=== PATIENT | male | born 1965 | race African-American/Black ===

== ENCOUNTER 2019-02-13 17:15 | Inpatient (IN) | payer OTHER ==
[~2019-02-13] VITALS: Ht 185.4 cm; Wt 137.4 kg
[~2019-02-13 17:15] MED LIST: AMLO10TA7 PO; ASPI-1182 PO; GLIP10 PO; LOSA25TA41 PO; METF1000 PO
[2019-02-13] MEDS ORDERED: METF-960 PO (17:20)
[2019-02-13] MEDS ORDERED: ATEN25TA PO (17:20)
[2019-02-13] MEDS ORDERED: ASPIRIN 81 MG CHEWABLE TABLET PO ONE (17:45)
[2019-02-13 17:51] LABS: BASOPHILS % (AUTO) 0.4 % (0.0-2.0); EOSINOPHILS % (AUTO) 2.8 % (1.0-6.0); HEMATOCRIT 39.8 % (41-53); LYMPHOCYTES # (AUTO) 1.1 K/uL (1.0-4.8); LYMPHOCYTES % (AUTO) 19.3 % (22.0-44.0); MEAN CORPUSCULAR HEMOGLOBIN 29.8 pg (26.0-34.0); MEAN CORPUSCULAR HGB CONC 32.6 G/dL (31.0-37.0); MEAN CORPUSCULAR VOLUME 91 fL (80-100); MONOCYTES # (AUTO) 0.4 K/uL (0.1-1.0); NEUTROPHILS # (AUTO) 3.9 K/uL (1.8-7.7); NEUTROPHILS % (AUTO) 70.5 % (40.0-70.0); PLATELET COUNT (AUTO) 210 K/uL (150-450); RED BLOOD CELL COUNT(AUTO) 4.36 MIL/uL (4.50-5.90); RED CELL DISTRIBUTION WIDTH 14.6 % (11.5-14.5)
[2019-02-13 18:02] LABS: CALCIUM, TOTAL 8.5 mg/dL (8.8-10.5); CREATININE 1.84 mg/dL (0.60-1.30); POTASSIUM 3.3 mmol/L (3.5-5.1)
[2019-02-13] MEDS ORDERED: ALBUTEROL SULFATE 2.5 MG/0.5 ML NEB SOLUTION NEB ONE (18:15)
[2019-02-13] MEDS ORDERED: IPRATROPIUM BROMIDE 0.5 MG/2.5 ML NEB SOLUTION NEB ONE (18:15)
[2019-02-13] MEDS ORDERED: FUROSEMIDE 40 MG/4 ML VIAL IVP ONE (18:15)
[2019-02-13 18:27] LABS: ALBUMIN 2.3 g/dL (3.4-5.0); BILIRUBIN,TOTAL 0.4 mg/dL (0.1-1.0); TOTAL PROTEIN, SERUM 6.1 g/dL (6.4-8.2)
[2019-02-13 19:04] LABS: APPEARANCE,URINE CLEAR (CLEAR); BILIRUBIN,URINE NEGATIVE (NEGATIVE); GLUCOSE, URINE (UA) 250 mg/dL (NEGATIVE); KETONES,URINE NEGATIVE (NEGATIVE); LEUKOCYTE ESTERASE ,URINE NEGATIVE (NEGATIVE); NITRATE,URINE NEGATIVE (NEGATIVE); OCCULT BLOOD,URINE TRACE (NEGATIVE); PH,URINE 6.5 (5.0-8.0); PROTEIN,URINE SEE CONFIRM (NEGATIVE)
[2019-02-13 19:28] LABS: SULFOSALICYLIC ACID,URINE 4+ (Negative)
[2019-02-13 19:29] LABS: BACTERIA,URINE None Seen /HPF (None Seen); FINE GRANULAR CASTS,URINE 0-2 /LPF (None Seen); RBC,URINE 0-2 /HPF (0-2); WBC,URINE 0-2 /HPF (0-5)
[2019-02-13] MEDS ORDERED: ACETAMINOPHEN 325 MG TABLET PO PRN (23:00)
[2019-02-13] MEDS ORDERED: ONDANSETRON HCL 4 MG/2 ML VIAL IVP PRN (23:00)
[2019-02-13] MEDS ORDERED: 0.9% SODIUM CHLORIDE 10 ML SYRINGE IVP PRN (23:00)
[2019-02-14] VITALS (7 sets, daily range): BP systolic 134–153; BP diastolic 89–104
[2019-02-14] MEDS ORDERED: POTASSIUM CHLORIDE 20 MEQ ER TABLET PO ONE (01:00)
[2019-02-14] MEDS: FUROSEMIDE 40 MG/4 ML VIAL IVP SCH ×3 (09:15→23:51)
[2019-02-14] MEDS ORDERED: AmLODIPine BESYLATE 10 MG TABLET PO ONE (20:45)
[2019-02-14] MEDS ORDERED: ALBUTEROL SULFATE 2.5 MG/0.5 ML NEB SOLUTION NEB PRN (20:45)
[2019-02-14] MEDS ORDERED: DEXTROSE 50%-WATER 25 GM/50 ML SYRINGE IVP PRN (20:45)
[2019-02-14] MEDS: INSULIN LISPRO 100 UNITS/ML SQ PRN (21:12)
[2019-02-14] MEDS ORDERED: 0.9% SODIUM CHLORIDE 5 ML NEB SOLUTION NEB ONE (21:14)
[2019-02-14 22:56] LABS: GLUCOMETER DEV NAME(LOC) 5S.1; GLUCOSE,POINT OF CARE 397 MG/DL (70-110)
[2019-02-15 04:19] VITALS: BP 149/79
[2019-02-15] MEDS: INSULIN LISPRO 100 UNITS/ML SQ PRN ×3 (06:18→20:21)
[2019-02-15 06:21] LABS: BASOPHILS % (AUTO) 0.6 % (0.0-2.0); EOSINOPHILS % (AUTO) 3.3 % (1.0-6.0); HEMATOCRIT 39.2 % (41-53); HEMOGLOBIN 13.1 g/dL (13.5-17.5); LYMPHOCYTES # (AUTO) 1.4 K/uL (1.0-4.8); LYMPHOCYTES % (AUTO) 28.2 % (22.0-44.0); MEAN CORPUSCULAR HEMOGLOBIN 30.5 pg (26.0-34.0); MEAN CORPUSCULAR HGB CONC 33.3 G/dL (31.0-37.0); MEAN CORPUSCULAR VOLUME 92 fL (80-100); MONOCYTES # (AUTO) 0.4 K/uL (0.1-1.0); MONOCYTES % (AUTO) 7.7 % (2.0-9.0); NEUTROPHILS % (AUTO) 60.2 % (40.0-70.0); PLATELET COUNT (AUTO) 206 K/uL (150-450); RED BLOOD CELL COUNT(AUTO) 4.29 MIL/uL (4.50-5.90); RED CELL DISTRIBUTION WIDTH 15.2 % (11.5-14.5)
[2019-02-15 06:36] LABS: CALCIUM, TOTAL 8.4 mg/dL (8.8-10.5); CREATININE 1.48 mg/dL (0.60-1.30); MAGNESIUM 1.3 mg/dL (1.80-2.40); POTASSIUM 3.1 mmol/L (3.5-5.1)
[2019-02-15 07:35] VITALS: BP 150/81
[2019-02-15] MEDS: FUROSEMIDE 40 MG/4 ML VIAL IVP SCH ×3 (08:08→23:15)
[2019-02-15] MEDS ORDERED: ACETAMINOPHEN 325 MG TABLET PO PRN (09:00)
[2019-02-15] MEDS ORDERED: MAGNESIUM SULFATE 4 GM/WATER 100 ML IV PRN (09:00)
[2019-02-15] MEDS ORDERED: MORPHINE SULFATE 2 MG/ML SYRINGE IVP PRN (09:00)
[2019-02-15] MEDS ORDERED: BISACODYL 10 MG RECTAL RECTAL SUPPOSITORY PR PRN (09:00)
[2019-02-15] MEDS ORDERED: ONDANSETRON HCL 4 MG/2 ML VIAL IVP PRN (09:00)
[2019-02-15] MEDS ORDERED: POTASSIUM CHL 10 MEQ/WATER 50 ML IV PRN (09:00)
[2019-02-15] MEDS ORDERED: MAGNESIUM HYDROXIDE SUSPENSION 30 ML UDCUP PO PRN (09:00)
[2019-02-15] MEDS ORDERED: DEXTRAN 70 0.1%/HYPROMELL 0.3% 0.9 ML OPHTHALMIC SOLUTION [PF] OU PRN (09:00)
[2019-02-15] MEDS ORDERED: ZOLPIDEM TARTRATE 5 MG TABLET PO PRN (09:00)
[2019-02-15] MEDS ORDERED: IPRATROPIUM BROMIDE 0.5 MG/2.5 ML NEB SOLUTION NEB PRN (09:00)
[2019-02-15] MEDS ORDERED: HYDROCODONE/ACETAMINOPHEN 5-325 MG TABLET PO PRN (09:00)
[2019-02-15] MEDS ORDERED: ALBUTEROL SULFATE 2.5 MG/0.5 ML NEB SOLUTION NEB PRN (09:00)
[2019-02-15] MEDS ORDERED: MAGNESIUM OXIDE 400 MG TABLET PO PRN (09:00)
[2019-02-15 09:09] LABS: ALBUMIN 2.2 g/dL (3.4-5.0)
[2019-02-15] MEDS: AmLODIPine BESYLATE 10 MG TABLET PO SCH (09:59)
[2019-02-15] MEDS: ATENOLOL 25 MG TABLET PO SCH (09:59)
[2019-02-15] MEDS: ASPIRIN 81 MG EC TABLET PO SCH (09:59)
[2019-02-15] MEDS: DOCUSATE SODIUM 100 MG CAPSULE PO SCH ×2 (09:59→20:15)
[2019-02-15] MEDS: LOSARTAN POTASSIUM 25 MG TABLET PO SCH (09:59)
[2019-02-15] MEDS ORDERED: SODIUM CHLORIDE 0.9% 250 ML IV ONE (10:47)
[2019-02-15] MEDS: MAGNESIUM SULFATE 2 GM/WATER 50 ML IV PRN (10:59)
[2019-02-15 11:05] VITALS: BP 136/91
[2019-02-15] MEDS: POTASSIUM CHLORIDE 20 MEQ ER TABLET PO PRN (13:01)
[2019-02-15 15:00] VITALS: BP 142/101
[2019-02-15] MEDS: HEPARIN SODIUM,PORCINE 5,000 UNITS/ML VIAL SQ SCH ×2 (17:22→23:15)
[2019-02-15] MEDS: GlipiZIDE 10 MG TABLET PO SCH (17:22)
[2019-02-15 19:56] LABS: GLUCOMETER DEV NAME(LOC) 5S.2A; GLUCOSE,POINT OF CARE 354 MG/DL (70-110)
[2019-02-15 20:35] VITALS: BP 146/83
[2019-02-16] VITALS (18 sets, daily range): BP systolic 125–178; BP diastolic 72–101
[2019-02-16] MEDS: INSULIN LISPRO 100 UNITS/ML SQ PRN ×4 (06:18→20:32)
[2019-02-16 06:21] LABS: GLUCOMETER DEV NAME(LOC) 5S.2A; GLUCOSE,POINT OF CARE 220 MG/DL (70-110)
[2019-02-16 06:21] LABS: GLUCOMETER DEV NAME(LOC) 5S.1; GLUCOSE,POINT OF CARE 292 MG/DL (70-110)
[2019-02-16] MEDS: GlipiZIDE 10 MG TABLET PO SCH ×2 (06:30→16:53)
[2019-02-16] MEDS: HEPARIN SODIUM,PORCINE 5,000 UNITS/ML VIAL SQ SCH ×3 (08:00→23:24)
[2019-02-16] MEDS: ASPIRIN 81 MG EC TABLET PO SCH (08:19)
[2019-02-16] MEDS ORDERED: SODIUM BICARBONATE 50 MEQ/50 ML VIAL ONE (08:25)
[2019-02-16] MEDS ORDERED: IOHEXOL 300 MG/ML 150 ML VIAL ONE (08:25)
[2019-02-16] MEDS ORDERED: LIDOCAINE/PF 1% 30 ML VIAL ONE (08:25)
[2019-02-16] MEDS ORDERED: HEPARIN SODIUM 1000 UNITS/NS 1,000 ML ONE (08:25)
[2019-02-16] MEDS: ATENOLOL 25 MG TABLET PO SCH (08:32)
[2019-02-16] MEDS ORDERED: FentaNYL CITRATE-PF 100 MCG/2 ML VIAL ONE (09:16)
[2019-02-16] MEDS ORDERED: MIDAZOLAM HCL 2 MG/2 ML VIAL ONE (09:17)
[2019-02-16] MEDS ORDERED: NITROGLYCERIN 50 MG/D5% WATER 250 ML ONE (09:20)
[2019-02-16] MEDS ORDERED: VERAPAMIL HCL 2.5 MG/ML 2 ML VIAL ONE (09:20)
[2019-02-16] MEDS ORDERED: SODIUM CHLORIDE 0.9% 500 ML IV ONE (09:31)
[2019-02-16] MEDS ORDERED: HEPARIN SODIUM 1000 UNITS/NS 1,000 ML IARTER ONE (09:31)
[2019-02-16] MEDS ORDERED: LIDOCAINE 1% 30 ML/SOD BICARB 8.4% 4 ML SQ ONE (09:45)
[2019-02-16] MEDS ORDERED: FentaNYL CITRATE-PF 100 MCG/2 ML VIAL IVP ONE (09:45)
[2019-02-16] MEDS ORDERED: VERAPAMIL HCL 2.5 MG/ML 2 ML VIAL IARTER ONE (09:45)
[2019-02-16] MEDS ORDERED: NITROGLYCERIN/D5W 50 MG/250 ML IV BOTTLE IARTER ONE (09:45)
[2019-02-16] MEDS ORDERED: MIDAZOLAM HCL 2 MG/2 ML VIAL IVP ONE (09:45)
[2019-02-16] MEDS ORDERED: IOHEXOL 300 MG/ML 150 ML VIAL IARTER ONE (09:45)
[2019-02-16] MEDS ORDERED: HEPARIN SODIUM,PORCINE 5,000 UNITS/ML VIAL IVP ONE (10:15)
[2019-02-16] MEDS ORDERED: MAGNESIUM SULFATE 2 GM/WATER 50 ML IV ONE (10:15)
[2019-02-16] MEDS: LOSARTAN POTASSIUM 25 MG TABLET PO SCH (10:27)
[2019-02-16] MEDS: FUROSEMIDE 40 MG/4 ML VIAL IVP SCH ×3 (10:27→23:24)
[2019-02-16] MEDS: DOCUSATE SODIUM 100 MG CAPSULE PO SCH ×2 (10:27→20:20)
[2019-02-16] MEDS: AmLODIPine BESYLATE 10 MG TABLET PO SCH (10:27)
[2019-02-16 10:37] LABS: CALCIUM, TOTAL 8.4 mg/dL (8.8-10.5); CREATININE 1.54 mg/dL (0.60-1.30); MAGNESIUM 1.5 mg/dL (1.80-2.40); POTASSIUM 3.5 mmol/L (3.5-5.1)
[2019-02-16 11:25] LABS: GLUCOMETER DEV NAME(LOC) 5N.1; GLUCOSE,POINT OF CARE 289 MG/DL (70-110)
[2019-02-16] MEDS: CARVEDILOL 6.25 MG TABLET PO SCH (20:21)
[2019-02-17 03:55] LABS: GLUCOMETER DEV NAME(LOC) 5S.1; GLUCOSE,POINT OF CARE 367 MG/DL (70-110)
[2019-02-17 03:55] LABS: GLUCOMETER DEV NAME(LOC) 5N.2; GLUCOSE,POINT OF CARE 208 MG/DL (70-110)
[2019-02-17 04:00] LABS: GLUCOMETER DEV NAME(LOC) 5N.1; GLUCOSE,POINT OF CARE 275 MG/DL (70-110)
[2019-02-17 04:42] VITALS: BP 145/92
[2019-02-17] MEDS: GlipiZIDE 10 MG TABLET PO SCH (06:10)
[2019-02-17] MEDS: INSULIN LISPRO 100 UNITS/ML SQ PRN ×2 (06:13→12:02)
[2019-02-17 07:00] LABS: CALCIUM, TOTAL 8.4 mg/dL (8.8-10.5); CREATININE 1.64 mg/dL (0.60-1.30); MAGNESIUM 1.4 mg/dL (1.80-2.40); POTASSIUM 3.3 mmol/L (3.5-5.1)
[2019-02-17 07:30] VITALS: BP 144/83
[2019-02-17] MEDS: ASPIRIN 81 MG EC TABLET PO SCH (08:32)
[2019-02-17] MEDS: DOCUSATE SODIUM 100 MG CAPSULE PO SCH (08:32)
[2019-02-17] MEDS: POTASSIUM CHLORIDE 20 MEQ ER TABLET PO PRN (08:32)
[2019-02-17] MEDS: LOSARTAN POTASSIUM 25 MG TABLET PO SCH (08:32)
[2019-02-17] MEDS: AmLODIPine BESYLATE 10 MG TABLET PO SCH (08:32)
[2019-02-17] MEDS: CARVEDILOL 6.25 MG TABLET PO SCH (08:32)
[2019-02-17] MEDS: HEPARIN SODIUM,PORCINE 5,000 UNITS/ML VIAL SQ SCH (08:33)
[2019-02-17] MEDS: FUROSEMIDE 40 MG/4 ML VIAL IVP SCH (08:33)
[2019-02-17] MEDS: MAGNESIUM SULFATE 2 GM/WATER 50 ML IV PRN (08:36)
[2019-02-17 11:05] VITALS: BP 117/93
[2019-02-17 11:15] LABS: GLUCOMETER DEV NAME(LOC) 5S.1; GLUCOSE,POINT OF CARE 274 MG/DL (70-110)
[2019-02-17] MEDS ORDERED: CARV6 PO (12:58)
[2019-02-17] MEDS ORDERED: FURO40 PO (12:59)
[2019-02-17 17:10] LABS: GLUCOMETER DEV NAME(LOC) 5S.1; GLUCOSE,POINT OF CARE 261 MG/DL (70-110)
[2019-02-17] MEDS ORDERED: FUROSEMIDE 40 MG TABLET PO SCH (21:00)
== END 2019-02-17 13:45 | disposition home or self-care (01) | DRG 192 ==
LOC: EMS 17:16 → 5S 23:17
PROVIDERS: ADMIT Hospitalist; ATTEND Hospitalist
PROC: 4A023N7 Measurement of Cardiac Sampling and Pressure, Left Heart, Percutaneous Approach (ICD-10-PCS; principal; 2019-02-16)
PROC: B2111ZZ Fluoroscopy of Multiple Coronary Arteries using Low Osmolar Contrast (ICD-10-PCS; 2019-02-16)
DX: I11.0 Hypertensive heart disease with heart failure (principal); I42.9 Cardiomyopathy, unspecified; E44.0 Moderate protein-calorie malnutrition; E66.01 Morbid (severe) obesity due to excess calories; E11.65 Type 2 diabetes mellitus with hyperglycemia; E83.42 Hypomagnesemia; I50.43 Acute on chronic combined systolic (congestive) and diastolic (congestive) heart failure; I34.0 Nonrheumatic mitral (valve) insufficiency; E87.6 Hypokalemia; J98.01 Acute bronchospasm; E78.5 Hyperlipidemia, unspecified; N28.9 Disorder of kidney and ureter, unspecified; G43.909 Migraine, unspecified, not intractable, without status migrainosus; D64.9 Anemia, unspecified; Z68.41 Body mass index [BMI] 40.0-44.9, adult; I25.2 Old myocardial infarction; Z82.49 Family history of ischemic heart disease and other diseases of the circulatory system; Z80.6 Family history of leukemia; Z91.19 Patient's noncompliance with other medical treatment and regimen; Z83.3 Family history of diabetes mellitus
CPT/HCPCS: 83735; 84132; 93005; 93306; 94640; G0378; J1644; J1940; J2250; J3010; J3475; J3490; J7050; Q9967

== ENCOUNTER 2019-04-02 00:58 | Emergency (ER) | payer OTHER ==
[~2019-04-02] VITALS: Ht 185.4 cm; Wt 131.8 kg
[~2019-04-02 00:58] MED LIST changes: -AMLO10TA7 PO; +CARV6 PO; +FURO40 PO; -METF1000 PO
[2019-04-02] MEDS ORDERED: METF-960 PO (01:17)
[2019-04-02 01:29] LABS: GLUCOSE,POINT OF CARE 268 MG/DL (70-110)
[2019-04-02 02:56] LABS: BASOPHILS % (AUTO) 0.8 % (0.0-2.0); EOSINOPHILS % (AUTO) 2.2 % (1.0-6.0); HEMATOCRIT 40.2 % (41-53); HEMOGLOBIN 13.3 g/dL (13.5-17.5); LYMPHOCYTES # (AUTO) 1.5 K/uL (1.0-4.8); LYMPHOCYTES % (AUTO) 23.7 % (22.0-44.0); MEAN CORPUSCULAR HGB CONC 33.2 G/dL (31.0-37.0); MEAN CORPUSCULAR VOLUME 91 fL (80-100); MONOCYTES # (AUTO) 0.6 K/uL (0.1-1.0); MONOCYTES % (AUTO) 9.1 % (2.0-9.0); NEUTROPHILS # (AUTO) 4.2 K/uL (1.8-7.7); NEUTROPHILS % (AUTO) 64.2 % (40.0-70.0); PLATELET COUNT (AUTO) 208 K/uL (150-450); RED BLOOD CELL COUNT(AUTO) 4.45 MIL/uL (4.50-5.90); RED CELL DISTRIBUTION WIDTH 14.5 % (11.5-14.5)
[2019-04-02 03:05] LABS: CALCIUM, TOTAL 8.6 mg/dL (8.8-10.5); CREATININE 1.92 mg/dL (0.60-1.30); POTASSIUM 3.7 mmol/L (3.5-5.1)
[2019-04-02 03:11] LABS: ALBUMIN 2.2 g/dL (3.4-5.0); BILIRUBIN,TOTAL 0.2 mg/dL (0.1-1.0); TOTAL PROTEIN, SERUM 6.7 g/dL (6.4-8.2)
[2019-04-02 08:30] VITALS: BP 159/101
[2019-04-02] MEDS ORDERED: FUROSEMIDE 20 MG TABLET PO ONE (08:45)
== END 2019-04-02 08:50 | disposition home or self-care (01) ==
LOC: EMS 01:01
DX: R60.0 Localized edema (principal); R06.02 Shortness of breath; I11.0 Hypertensive heart disease with heart failure; I50.9 Heart failure, unspecified; E11.9 Type 2 diabetes mellitus without complications; G43.909 Migraine, unspecified, not intractable, without status migrainosus; Z79.84 Long term (current) use of oral hypoglycemic drugs; Z79.82 Long term (current) use of aspirin
CPT/HCPCS: 93970

== ENCOUNTER 2019-07-20 13:54 | Inpatient (IN) | payer OTHER ==
[~2019-07-20] VITALS: Ht 185.4 cm; Wt 70.7 kg
[~2019-07-20 13:54] MED LIST changes: -ASPI-1182 PO; +ASPI-728 PO; +ATOR20TA65 PO; +AZIT250T9 PO; +BUME1TAB34 PO; +CARV12 PO; -CARV6 PO; +CEPH500 PO; +FAMO20 PO; -FURO40 PO; -LOSA25TA41 PO; +LOSA25TA71 PO; +METF-960 PO; +OSEL30CA PO; +SPIR25TA PO
[2019-07-20] MEDS ORDERED: LISI-660 PO (14:06)
[2019-07-20] MEDS ORDERED: ASPIRIN 325 MG TABLET PO ONE (15:30)
[2019-07-20] MEDS ORDERED: FUROSEMIDE 40 MG/4 ML VIAL IVP ONE (15:30)
[2019-07-20 15:33] LABS: BASOPHILS % (AUTO) 1.3 % (0.0-2.0); EOSINOPHILS % (AUTO) 1.9 % (1.0-6.0); HEMATOCRIT 39.9 % (41-53); HEMOGLOBIN 12.7 g/dL (13.5-17.5); LYMPHOCYTES # (AUTO) 1.3 K/uL (1.0-4.8); MEAN CORPUSCULAR HEMOGLOBIN 28.9 pg (26.0-34.0); MEAN CORPUSCULAR HGB CONC 31.8 G/dL (31.0-37.0); MEAN CORPUSCULAR VOLUME 91 fL (80-100); MONOCYTES # (AUTO) 0.4 K/uL (0.1-1.0); MONOCYTES % (AUTO) 9.3 % (2.0-9.0); NEUTROPHILS # (AUTO) 2.6 K/uL (1.8-7.7); NEUTROPHILS % (AUTO) 57.5 % (40.0-70.0); PLATELET COUNT (AUTO) 189 K/uL (150-450); RED BLOOD CELL COUNT(AUTO) 4.38 MIL/uL (4.50-5.90); RED CELL DISTRIBUTION WIDTH 18.3 % (11.5-14.5)
[2019-07-20 15:48] LABS: CALCIUM, TOTAL 9.1 mg/dL (8.8-10.5); CREATININE 2.62 mg/dL (0.60-1.30); POTASSIUM 4.6 mmol/L (3.5-5.1)
[2019-07-20 15:57] LABS: ALBUMIN 2.3 g/dL (3.4-5.0); BILIRUBIN,TOTAL 0.6 mg/dL (0.1-1.0); TOTAL PROTEIN, SERUM 6.5 g/dL (6.4-8.2)
[2019-07-20] MEDS ORDERED: ONDANSETRON HCL 4 MG/2 ML VIAL IVP PRN ×2 (17:30→21:45)
[2019-07-20] MEDS ORDERED: 0.9% SODIUM CHLORIDE 10 ML SYRINGE IVP PRN (17:30)
[2019-07-20] MEDS ORDERED: FUROSEMIDE 20 MG/2 ML VIAL IVP ONE (17:30)
[2019-07-20] MEDS ORDERED: ACETAMINOPHEN 325 MG TABLET PO PRN ×2 (17:30→21:45)
[2019-07-20] MEDS ORDERED: ZOLPIDEM TARTRATE 5 MG TABLET PO PRN (21:45)
[2019-07-20] MEDS ORDERED: HYDROCODONE/ACETAMINOPHEN 5-325 MG TABLET PO PRN (21:45)
[2019-07-20] MEDS ORDERED: MAGNESIUM HYDROXIDE SUSPENSION 30 ML UDCUP PO PRN (21:45)
[2019-07-20] MEDS ORDERED: MORPHINE SULFATE 2 MG/ML SYRINGE IVP PRN (21:45)
[2019-07-20] MEDS ORDERED: BISACODYL 10 MG RECTAL RECTAL SUPPOSITORY PR PRN (21:45)
[2019-07-20 22:07] VITALS: BP 131/87
[2019-07-21] VITALS (7 sets, daily range): BP systolic 106–148; BP diastolic 69–97
[2019-07-21] MEDS ORDERED: HEPARIN SODIUM,PORCINE 5,000 UNITS/ML VIAL SQ SCH
[2019-07-21] MEDS: BUMETANIDE 1 MG TABLET PO SCH ×3 (05:51→16:11)
[2019-07-21] MEDS: GlipiZIDE 10 MG TABLET PO SCH ×2 (05:51→17:30)
[2019-07-21 06:34] LABS: BASOPHILS % (AUTO) 0.9 % (0.0-2.0); EOSINOPHILS % (AUTO) 3.1 % (1.0-6.0); HEMATOCRIT 39.1 % (41-53); HEMOGLOBIN 12.7 g/dL (13.5-17.5); LYMPHOCYTES # (AUTO) 1.8 K/uL (1.0-4.8); LYMPHOCYTES % (AUTO) 40.3 % (22.0-44.0); MEAN CORPUSCULAR HEMOGLOBIN 29.2 pg (26.0-34.0); MEAN CORPUSCULAR HGB CONC 32.4 G/dL (31.0-37.0); MEAN CORPUSCULAR VOLUME 90 fL (80-100); MONOCYTES # (AUTO) 0.6 K/uL (0.1-1.0); MONOCYTES % (AUTO) 12.9 % (2.0-9.0); NEUTROPHILS # (AUTO) 1.9 K/uL (1.8-7.7); NEUTROPHILS % (AUTO) 42.8 % (40.0-70.0); PLATELET COUNT (AUTO) 179 K/uL (150-450); RED BLOOD CELL COUNT(AUTO) 4.35 MIL/uL (4.50-5.90); RED CELL DISTRIBUTION WIDTH 17.5 % (11.5-14.5)
[2019-07-21 06:50] LABS: CREATININE 2.73 mg/dL (0.60-1.30); POTASSIUM 4.1 mmol/L (3.5-5.1)
[2019-07-21] MEDS ORDERED: MetFORMIN HCL 500 MG TABLET PO SCH (08:00)
[2019-07-21] MEDS: PANTOPRAZOLE SODIUM 40 MG DR TABLET PO SCH (08:40)
[2019-07-21] MEDS: SPIRONOLACTONE 25 MG TABLET PO SCH (08:40)
[2019-07-21] MEDS: ASPIRIN 81 MG CHEWABLE TABLET PO SCH (08:41)
[2019-07-21] MEDS: CARVEDILOL 12.5 MG TABLET PO SCH ×2 (08:41→21:25)
[2019-07-21] MEDS: DOCUSATE SODIUM 100 MG CAPSULE PO SCH ×2 (08:41→21:25)
[2019-07-21] MEDS ORDERED: LISINOPRIL 5 MG TABLET PO SCH (09:00)
[2019-07-21] MEDS ORDERED: LOSARTAN POTASSIUM 25 MG TABLET PO SCH (09:00)
[2019-07-21] MEDS: HEPARIN SODIUM,PORCINE 5,000 UNITS/ML VIAL SQ SCH (16:10)
[2019-07-21] MEDS: BUMETANIDE 0.25 MG/ML 10 ML VIAL IV SCH (21:25)
[2019-07-21] MEDS: ATORVASTATIN CALCIUM 20 MG TABLET PO SCH (21:25)
[2019-07-22] MEDS: HEPARIN SODIUM,PORCINE 5,000 UNITS/ML VIAL SQ SCH ×3 (00:09→16:05)
[2019-07-22 04:18] VITALS: BP 103/56
[2019-07-22] MEDS: GlipiZIDE 10 MG TABLET PO SCH ×2 (06:37→18:04)
[2019-07-22 06:51] LABS: BASOPHILS % (AUTO) 1.3 % (0.0-2.0); EOSINOPHILS % (AUTO) 4.5 % (1.0-6.0); HEMATOCRIT 36.9 % (41-53); HEMOGLOBIN 11.9 g/dL (13.5-17.5); LYMPHOCYTES # (AUTO) 1.3 K/uL (1.0-4.8); LYMPHOCYTES % (AUTO) 30.5 % (22.0-44.0); MEAN CORPUSCULAR HEMOGLOBIN 29.4 pg (26.0-34.0); MEAN CORPUSCULAR HGB CONC 32.3 G/dL (31.0-37.0); MEAN CORPUSCULAR VOLUME 91 fL (80-100); MONOCYTES # (AUTO) 0.5 K/uL (0.1-1.0); MONOCYTES % (AUTO) 10.4 % (2.0-9.0); NEUTROPHILS # (AUTO) 2.3 K/uL (1.8-7.7); NEUTROPHILS % (AUTO) 53.3 % (40.0-70.0); PLATELET COUNT (AUTO) 174 K/uL (150-450); RED BLOOD CELL COUNT(AUTO) 4.05 MIL/uL (4.50-5.90); RED CELL DISTRIBUTION WIDTH 17.6 % (11.5-14.5)
[2019-07-22 07:07] LABS: CALCIUM, TOTAL 8.3 mg/dL (8.8-10.5); CREATININE 2.54 mg/dL (0.60-1.30); MAGNESIUM 1.5 mg/dL (1.80-2.40); PHOSPHORUS 4.3 mg/dL (2.5-4.9)
[2019-07-22 08:00] VITALS: BP 110/70
[2019-07-22] MEDS: PANTOPRAZOLE SODIUM 40 MG DR TABLET PO SCH (08:45)
[2019-07-22] MEDS: CARVEDILOL 12.5 MG TABLET PO SCH ×2 (08:45→20:18)
[2019-07-22] MEDS: DOCUSATE SODIUM 100 MG CAPSULE PO SCH ×2 (08:45→20:12)
[2019-07-22] MEDS: ASPIRIN 81 MG CHEWABLE TABLET PO SCH (08:45)
[2019-07-22] MEDS: SPIRONOLACTONE 25 MG TABLET PO SCH (08:45)
[2019-07-22] MEDS ORDERED: MAGNESIUM SULFATE 1 GM in DEXTROSE 5%-WATER 50 ML IV ONE (08:45)
[2019-07-22] MEDS ORDERED: SODIUM CHLORIDE 0.9% 250 ML IV ONE (09:50)
[2019-07-22] MEDS: BUMETANIDE 0.25 MG/ML 10 ML VIAL IV SCH ×2 (10:39→20:12)
[2019-07-22 11:29] VITALS: BP 103/71
[2019-07-22 14:49] LABS: GLUCOMETER DEV NAME(LOC) 5S.2A; GLUCOSE,POINT OF CARE 142 MG/DL (70-110)
[2019-07-22 15:13] VITALS: BP 119/85
[2019-07-22 19:42] VITALS: BP 127/82
[2019-07-22] MEDS: ATORVASTATIN CALCIUM 20 MG TABLET PO SCH (20:12)
[2019-07-22 23:38] VITALS: BP 142/93
[2019-07-23] MEDS: HEPARIN SODIUM,PORCINE 5,000 UNITS/ML VIAL SQ SCH ×4 (00:06→23:08)
[2019-07-23 00:39] LABS: APPEARANCE,URINE CLEAR (CLEAR); BILIRUBIN,URINE NEGATIVE (NEGATIVE); GLUCOSE, URINE (UA) NEGATIVE (NEGATIVE); KETONES,URINE NEGATIVE (NEGATIVE); LEUKOCYTE ESTERASE ,URINE NEGATIVE (NEGATIVE); NITRATE,URINE NEGATIVE (NEGATIVE); OCCULT BLOOD,URINE NEGATIVE (NEGATIVE); PROTEIN,URINE SEE CONFIRM (NEGATIVE)
[2019-07-23 00:42] LABS: CREATININE,URINE RANDOM 84.2 mg/dL (30.0-125.0); SODIUM,URINE RANDOM 61 mmol/l (20-110); UREA NITROGEN,URINE RANDOM 274 mg/dL (350-1000)
[2019-07-23 00:46] LABS: SULFOSALICYLIC ACID,URINE 2+ (Negative)
[2019-07-23 00:53] LABS: BACTERIA,URINE Few /HPF (None Seen); HYALINE CASTS, URINE 0-2 /LPF (None Seen); RBC,URINE 0-2 /HPF (0-2); SQUAMOUS EPITHELIAL CELL,UR Rare /LPF (None Seen); WBC,URINE 0-2 /HPF (0-5)
[2019-07-23 03:48] VITALS: BP 120/76
[2019-07-23] MEDS: GlipiZIDE 10 MG TABLET PO SCH ×2 (06:18→17:14)
[2019-07-23 06:33] LABS: BASOPHILS % (AUTO) 0.8 % (0.0-2.0); EOSINOPHILS % (AUTO) 3.9 % (1.0-6.0); HEMATOCRIT 38.4 % (41-53); HEMOGLOBIN 12.3 g/dL (13.5-17.5); LYMPHOCYTES # (AUTO) 1.6 K/uL (1.0-4.8); MEAN CORPUSCULAR HEMOGLOBIN 29.1 pg (26.0-34.0); MEAN CORPUSCULAR VOLUME 91 fL (80-100); MONOCYTES # (AUTO) 0.6 K/uL (0.1-1.0); NEUTROPHILS % (AUTO) 55.3 % (40.0-70.0); PLATELET COUNT (AUTO) 195 K/uL (150-450); RED BLOOD CELL COUNT(AUTO) 4.23 MIL/uL (4.50-5.90)
[2019-07-23 06:44] LABS: CALCIUM, TOTAL 8.5 mg/dL (8.8-10.5); CREATININE 2.4 mg/dL (0.60-1.30); MAGNESIUM 1.7 mg/dL (1.80-2.40); PHOSPHORUS 4.2 mg/dL (2.5-4.9); POTASSIUM 4.1 mmol/L (3.5-5.1)
[2019-07-23 07:07] VITALS: BP 136/93
[2019-07-23] MEDS: ASPIRIN 81 MG CHEWABLE TABLET PO SCH (08:09)
[2019-07-23] MEDS: SPIRONOLACTONE 25 MG TABLET PO SCH (08:09)
[2019-07-23] MEDS: CARVEDILOL 12.5 MG TABLET PO SCH ×2 (08:10→20:31)
[2019-07-23] MEDS: PANTOPRAZOLE SODIUM 40 MG DR TABLET PO SCH (08:10)
[2019-07-23] MEDS: DOCUSATE SODIUM 100 MG CAPSULE PO SCH ×2 (08:10→20:31)
[2019-07-23] MEDS ORDERED: MAGNESIUM SULFATE 1 GM in DEXTROSE 5%-WATER 50 ML IV ONE (10:30)
[2019-07-23 10:56] VITALS: BP 120/80
[2019-07-23] MEDS: BUMETANIDE 0.25 MG/ML 10 ML VIAL IV SCH ×2 (11:26→20:32)
[2019-07-23 16:04] VITALS: BP 136/81
[2019-07-23 20:22] VITALS: BP 145/94
[2019-07-23] MEDS: ATORVASTATIN CALCIUM 20 MG TABLET PO SCH (20:31)
[2019-07-24] VITALS (7 sets, daily range): BP systolic 112–144; BP diastolic 60–100
[2019-07-24] MEDS: GlipiZIDE 10 MG TABLET PO SCH ×2 (06:17→17:33)
[2019-07-24 07:46] LABS: EOSINOPHILS % (AUTO) 4.6 % (1.0-6.0); HEMATOCRIT 36.9 % (41-53); HEMOGLOBIN 11.9 g/dL (13.5-17.5); LYMPHOCYTES # (AUTO) 1.2 K/uL (1.0-4.8); LYMPHOCYTES % (AUTO) 27.4 % (22.0-44.0); MEAN CORPUSCULAR HEMOGLOBIN 29.1 pg (26.0-34.0); MEAN CORPUSCULAR HGB CONC 32.2 G/dL (31.0-37.0); MEAN CORPUSCULAR VOLUME 90 fL (80-100); MONOCYTES # (AUTO) 0.5 K/uL (0.1-1.0); MONOCYTES % (AUTO) 11.9 % (2.0-9.0); NEUTROPHILS # (AUTO) 2.4 K/uL (1.8-7.7); NEUTROPHILS % (AUTO) 55.1 % (40.0-70.0); PLATELET COUNT (AUTO) 203 K/uL (150-450); RED BLOOD CELL COUNT(AUTO) 4.09 MIL/uL (4.50-5.90); RED CELL DISTRIBUTION WIDTH 17.6 % (11.5-14.5)
[2019-07-24 08:01] LABS: CALCIUM, TOTAL 8.5 mg/dL (8.8-10.5); CREATININE 2.12 mg/dL (0.60-1.30); MAGNESIUM 1.7 mg/dL (1.80-2.40); PHOSPHORUS 3.6 mg/dL (2.5-4.9); POTASSIUM 4.1 mmol/L (3.5-5.1)
[2019-07-24] MEDS: SPIRONOLACTONE 25 MG TABLET PO SCH (08:20)
[2019-07-24] MEDS: HEPARIN SODIUM,PORCINE 5,000 UNITS/ML VIAL SQ SCH ×2 (08:20→17:33)
[2019-07-24] MEDS: DOCUSATE SODIUM 100 MG CAPSULE PO SCH ×2 (08:20→20:23)
[2019-07-24] MEDS: BUMETANIDE 0.25 MG/ML 10 ML VIAL IV SCH ×2 (08:20→20:24)
[2019-07-24] MEDS: PANTOPRAZOLE SODIUM 40 MG DR TABLET PO SCH (08:20)
[2019-07-24] MEDS: ASPIRIN 81 MG CHEWABLE TABLET PO SCH (08:20)
[2019-07-24] MEDS: CARVEDILOL 12.5 MG TABLET PO SCH ×2 (08:21→20:23)
[2019-07-24 11:51] LABS: GLUCOMETER DEV NAME(LOC) 5N.2; GLUCOSE,POINT OF CARE 139 MG/DL (70-110)
[2019-07-24] MEDS ORDERED: MAGNESIUM SULFATE 1 GM in DEXTROSE 5%-WATER 50 ML IV ONE (12:00)
[2019-07-24 18:04] LABS: GLUCOMETER DEV NAME(LOC) 5N.2; GLUCOSE,POINT OF CARE 157 MG/DL (70-110)
[2019-07-24] MEDS: ATORVASTATIN CALCIUM 20 MG TABLET PO SCH (20:23)
[2019-07-25] MEDS: HEPARIN SODIUM,PORCINE 5,000 UNITS/ML VIAL SQ SCH ×3 (00:28→15:59)
[2019-07-25 03:52] VITALS: BP 135/78
[2019-07-25] MEDS: GlipiZIDE 10 MG TABLET PO SCH ×2 (05:29→16:57)
[2019-07-25 05:31] LABS: GLUCOMETER DEV NAME(LOC) 5N.2; GLUCOSE,POINT OF CARE 147 MG/DL (70-110)
[2019-07-25 07:22] VITALS: BP 124/84
[2019-07-25 07:43] LABS: EOSINOPHILS % (AUTO) 5.9 % (1.0-6.0); HEMATOCRIT 38.8 % (41-53); HEMOGLOBIN 12.4 g/dL (13.5-17.5); LYMPHOCYTES # (AUTO) 1.5 K/uL (1.0-4.8); LYMPHOCYTES % (AUTO) 36.4 % (22.0-44.0); MEAN CORPUSCULAR HGB CONC 32.1 G/dL (31.0-37.0); MEAN CORPUSCULAR VOLUME 91 fL (80-100); MONOCYTES # (AUTO) 0.4 K/uL (0.1-1.0); MONOCYTES % (AUTO) 10.2 % (2.0-9.0); NEUTROPHILS # (AUTO) 1.9 K/uL (1.8-7.7); NEUTROPHILS % (AUTO) 46.5 % (40.0-70.0); PLATELET COUNT (AUTO) 204 K/uL (150-450); RED BLOOD CELL COUNT(AUTO) 4.29 MIL/uL (4.50-5.90)
[2019-07-25 07:54] LABS: CALCIUM, TOTAL 8.6 mg/dL (8.8-10.5); CREATININE 2.05 mg/dL (0.60-1.30); MAGNESIUM 1.6 mg/dL (1.80-2.40); PHOSPHORUS 3.6 mg/dL (2.5-4.9); POTASSIUM 3.9 mmol/L (3.5-5.1)
[2019-07-25] MEDS: ASPIRIN 81 MG CHEWABLE TABLET PO SCH (08:20)
[2019-07-25] MEDS: SPIRONOLACTONE 25 MG TABLET PO SCH (08:20)
[2019-07-25] MEDS: CARVEDILOL 12.5 MG TABLET PO SCH ×2 (08:20→20:05)
[2019-07-25] MEDS: BUMETANIDE 0.25 MG/ML 10 ML VIAL IV SCH ×2 (08:20→20:04)
[2019-07-25] MEDS: PANTOPRAZOLE SODIUM 40 MG DR TABLET PO SCH (08:20)
[2019-07-25] MEDS: DOCUSATE SODIUM 100 MG CAPSULE PO SCH ×2 (08:20→20:04)
[2019-07-25] MEDS ORDERED: MAGNESIUM SULFATE 2 GM in DEXTROSE 5%-WATER 50 ML IV ONE (08:45)
[2019-07-25] MEDS ORDERED: SODIUM CHLORIDE 0.9% 0 ML ONE (10:08)
[2019-07-25 11:11] VITALS: BP 120/80
[2019-07-25 15:16] VITALS: BP 115/68
[2019-07-25] MEDS: ATORVASTATIN CALCIUM 20 MG TABLET PO SCH (20:05)
[2019-07-25 20:07] VITALS: BP 125/92
[2019-07-25 23:10] VITALS: BP 151/95
[2019-07-26] MEDS: HEPARIN SODIUM,PORCINE 5,000 UNITS/ML VIAL SQ SCH ×4 (00:26→23:27)
[2019-07-26 04:38] VITALS: BP 132/66
[2019-07-26] MEDS: GlipiZIDE 10 MG TABLET PO SCH (06:07)
[2019-07-26 06:37] LABS: BASOPHILS % (AUTO) 0.9 % (0.0-2.0); EOSINOPHILS % (AUTO) 7.5 % (1.0-6.0); HEMATOCRIT 36.4 % (41-53); HEMOGLOBIN 11.8 g/dL (13.5-17.5); LYMPHOCYTES # (AUTO) 1.4 K/uL (1.0-4.8); LYMPHOCYTES % (AUTO) 38.3 % (22.0-44.0); MEAN CORPUSCULAR HGB CONC 32.3 G/dL (31.0-37.0); MEAN CORPUSCULAR VOLUME 90 fL (80-100); MONOCYTES # (AUTO) 0.4 K/uL (0.1-1.0); MONOCYTES % (AUTO) 11.1 % (2.0-9.0); NEUTROPHILS # (AUTO) 1.5 K/uL (1.8-7.7); NEUTROPHILS % (AUTO) 42.2 % (40.0-70.0); PLATELET COUNT (AUTO) 203 K/uL (150-450); RED BLOOD CELL COUNT(AUTO) 4.06 MIL/uL (4.50-5.90); RED CELL DISTRIBUTION WIDTH 17.5 % (11.5-14.5)
[2019-07-26 06:59] LABS: CALCIUM, TOTAL 8.3 mg/dL (8.8-10.5); CREATININE 2.15 mg/dL (0.60-1.30); MAGNESIUM 1.6 mg/dL (1.80-2.40); PHOSPHORUS 3.6 mg/dL (2.5-4.9); POTASSIUM 3.8 mmol/L (3.5-5.1)
[2019-07-26 07:15] VITALS: BP 134/90
[2019-07-26] MEDS ORDERED: MAGNESIUM SULFATE 2 GM in DEXTROSE 5%-WATER 50 ML IV ONE (08:45)
[2019-07-26] MEDS: CARVEDILOL 12.5 MG TABLET PO SCH ×2 (08:56→20:17)
[2019-07-26] MEDS: PANTOPRAZOLE SODIUM 40 MG DR TABLET PO SCH (08:56)
[2019-07-26] MEDS: SPIRONOLACTONE 25 MG TABLET PO SCH (08:56)
[2019-07-26] MEDS: ASPIRIN 81 MG CHEWABLE TABLET PO SCH (08:56)
[2019-07-26] MEDS: BUMETANIDE 0.25 MG/ML 10 ML VIAL IV SCH ×2 (08:56→20:17)
[2019-07-26] MEDS: DOCUSATE SODIUM 100 MG CAPSULE PO SCH ×2 (08:56→20:17)
[2019-07-26 10:57] VITALS: BP 125/78
[2019-07-26 15:51] VITALS: BP 132/95
[2019-07-26] MEDS: ATORVASTATIN CALCIUM 20 MG TABLET PO SCH (20:17)
[2019-07-26 20:19] VITALS: BP 135/93
[2019-07-27] VITALS (7 sets, daily range): BP systolic 112–141; BP diastolic 70–100
[2019-07-27] MEDS: GlipiZIDE 10 MG TABLET PO SCH ×2 (06:02→17:06)
[2019-07-27 06:52] LABS: BASOPHILS % (AUTO) 1.5 % (0.0-2.0); EOSINOPHILS % (AUTO) 7.2 % (1.0-6.0); HEMATOCRIT 35.4 % (41-53); HEMOGLOBIN 11.7 g/dL (13.5-17.5); LYMPHOCYTES # (AUTO) 1.2 K/uL (1.0-4.8); MEAN CORPUSCULAR HEMOGLOBIN 29.5 pg (26.0-34.0); MEAN CORPUSCULAR VOLUME 89 fL (80-100); MONOCYTES # (AUTO) 0.4 K/uL (0.1-1.0); MONOCYTES % (AUTO) 12.2 % (2.0-9.0); NEUTROPHILS # (AUTO) 1.6 K/uL (1.8-7.7); NEUTROPHILS % (AUTO) 45.1 % (40.0-70.0); PLATELET COUNT (AUTO) 210 K/uL (150-450); RED BLOOD CELL COUNT(AUTO) 3.96 MIL/uL (4.50-5.90)
[2019-07-27 07:16] LABS: ALBUMIN 2.1 g/dL (3.4-5.0); BILIRUBIN,TOTAL 0.4 mg/dL (0.1-1.0); CALCIUM, TOTAL 8.5 mg/dL (8.8-10.5); CREATININE 2.03 mg/dL (0.60-1.30); POTASSIUM 3.9 mmol/L (3.5-5.1); TOTAL PROTEIN, SERUM 6.2 g/dL (6.4-8.2)
[2019-07-27] MEDS: BUMETANIDE 0.25 MG/ML 10 ML VIAL IV SCH ×2 (08:09→20:57)
[2019-07-27] MEDS: DOCUSATE SODIUM 100 MG CAPSULE PO SCH ×2 (08:10→20:57)
[2019-07-27] MEDS: CARVEDILOL 12.5 MG TABLET PO SCH ×2 (08:10→20:57)
[2019-07-27] MEDS: ASPIRIN 81 MG CHEWABLE TABLET PO SCH (08:10)
[2019-07-27] MEDS: SPIRONOLACTONE 25 MG TABLET PO SCH (08:10)
[2019-07-27] MEDS: HEPARIN SODIUM,PORCINE 5,000 UNITS/ML VIAL SQ SCH ×3 (08:10→23:47)
[2019-07-27] MEDS: PANTOPRAZOLE SODIUM 40 MG DR TABLET PO SCH (08:10)
[2019-07-27 14:41] LABS: MAGNESIUM 1.6 mg/dL (1.80-2.40)
[2019-07-27] MEDS: ATORVASTATIN CALCIUM 20 MG TABLET PO SCH (20:57)
[2019-07-28 04:30] VITALS: BP 120/76
[2019-07-28 06:28] LABS: BASOPHILS % (AUTO) 1.2 % (0.0-2.0); EOSINOPHILS % (AUTO) 7.2 % (1.0-6.0); HEMATOCRIT 34.6 % (41-53); HEMOGLOBIN 11.4 g/dL (13.5-17.5); LYMPHOCYTES # (AUTO) 1.5 K/uL (1.0-4.8); LYMPHOCYTES % (AUTO) 39.8 % (22.0-44.0); MEAN CORPUSCULAR HEMOGLOBIN 29.3 pg (26.0-34.0); MEAN CORPUSCULAR HGB CONC 32.9 G/dL (31.0-37.0); MEAN CORPUSCULAR VOLUME 89 fL (80-100); MONOCYTES # (AUTO) 0.4 K/uL (0.1-1.0); MONOCYTES % (AUTO) 10.1 % (2.0-9.0); NEUTROPHILS # (AUTO) 1.5 K/uL (1.8-7.7); NEUTROPHILS % (AUTO) 41.7 % (40.0-70.0); PLATELET COUNT (AUTO) 203 K/uL (150-450); RED BLOOD CELL COUNT(AUTO) 3.89 MIL/uL (4.50-5.90); RED CELL DISTRIBUTION WIDTH 16.7 % (11.5-14.5)
[2019-07-28] MEDS: GlipiZIDE 10 MG TABLET PO SCH (06:33)
[2019-07-28 06:47] LABS: CREATININE 1.94 mg/dL (0.60-1.30); MAGNESIUM 1.5 mg/dL (1.80-2.40); PHOSPHORUS 3.2 mg/dL (2.5-4.9); POTASSIUM 3.9 mmol/L (3.5-5.1)
[2019-07-28 07:52] VITALS: BP 116/69
[2019-07-28] MEDS ORDERED: MAGNESIUM SULFATE 3 GM in DEXTROSE 5%-WATER 100 ML IV ONE (08:15)
[2019-07-28] MEDS: PANTOPRAZOLE SODIUM 40 MG DR TABLET PO SCH (08:37)
[2019-07-28] MEDS: SPIRONOLACTONE 25 MG TABLET PO SCH (08:37)
[2019-07-28] MEDS: CARVEDILOL 12.5 MG TABLET PO SCH (08:37)
[2019-07-28] MEDS: ASPIRIN 81 MG CHEWABLE TABLET PO SCH (08:37)
[2019-07-28] MEDS: BUMETANIDE 0.25 MG/ML 10 ML VIAL IV SCH (08:37)
[2019-07-28] MEDS: HEPARIN SODIUM,PORCINE 5,000 UNITS/ML VIAL SQ SCH (08:37)
[2019-07-28] MEDS: DOCUSATE SODIUM 100 MG CAPSULE PO SCH (08:41)
[2019-07-28 11:10] VITALS: BP 133/88
[2019-07-28] MEDS ORDERED: SPIR25 PO (11:28)
[2019-07-28] MEDS ORDERED: BUME1TAB34 PO (11:28)
[2019-07-28] MEDS ORDERED: BUMETANIDE 0.25 MG/ML 10 ML VIAL IV SCH (21:00)
== END 2019-07-28 14:05 | disposition home or self-care (01) | DRG 194 ==
LOC: EMS 13:56 → 5S 18:32
PROVIDERS: ADMIT Internal Medicine; ATTEND Internal Medicine
DX: I13.0 Hypertensive heart and chronic kidney disease with heart failure and stage 1 through stage 4 chronic kidney disease, or unspecified chronic kidney disease (principal); E11.22 Type 2 diabetes mellitus with diabetic chronic kidney disease; N17.9 Acute kidney failure, unspecified; E11.65 Type 2 diabetes mellitus with hyperglycemia; I42.8 Other cardiomyopathies; N18.4 Chronic kidney disease, stage 4 (severe); E83.42 Hypomagnesemia; I50.23 Acute on chronic systolic (congestive) heart failure; E78.5 Hyperlipidemia, unspecified; D64.9 Anemia, unspecified; Z95.810 Presence of automatic (implantable) cardiac defibrillator; G43.909 Migraine, unspecified, not intractable, without status migrainosus; E66.01 Morbid (severe) obesity due to excess calories; Z80.6 Family history of leukemia; Z79.899 Other long term (current) drug therapy; Z79.82 Long term (current) use of aspirin; Z68.20 Body mass index [BMI] 20.0-20.9, adult
CPT/HCPCS: 76770; 82570; 83735; 84100; 84300; 84540; 93005; J1644; J1940; J3475; J3490; J7050; J7060

== ENCOUNTER 2019-08-11 02:15 | Inpatient (IN) | payer OTHER ==
[~2019-08-11] VITALS: Ht 185.4 cm; Wt 158.5 kg
[~2019-08-11 02:15] MED LIST changes: -AZIT250T9 PO; -CEPH500 PO; -LOSA25TA71 PO; -METF-960 PO; -OSEL30CA PO; +SPIR25 PO; -SPIR25TA PO
[2019-08-11] MEDS ORDERED: LOSA-88 PO (02:28)
[2019-08-11] MEDS ORDERED: METF-960 PO (02:28)
[2019-08-11] MEDS ORDERED: MORPHINE SULFATE 4 MG/ML SYRINGE IVP ONE ×2 (02:45→04:30)
[2019-08-11 02:53] LABS: GLUCOSE,POINT OF CARE 140 MG/DL (70-110)
[2019-08-11 03:08] LABS: BASOPHILS % (AUTO) 0.5 % (0.0-2.0); EOSINOPHILS % (AUTO) 0.8 % (1.0-6.0); HEMATOCRIT 41.8 % (41-53); HEMOGLOBIN 13.4 g/dL (13.5-17.5); LYMPHOCYTES # (AUTO) 1.2 K/uL (1.0-4.8); MEAN CORPUSCULAR HEMOGLOBIN 28.9 pg (26.0-34.0); MEAN CORPUSCULAR HGB CONC 32.1 G/dL (31.0-37.0); MEAN CORPUSCULAR VOLUME 90 fL (80-100); MONOCYTES # (AUTO) 0.7 K/uL (0.1-1.0); MONOCYTES % (AUTO) 10.6 % (2.0-9.0); NEUTROPHILS # (AUTO) 4.8 K/uL (1.8-7.7); NEUTROPHILS % (AUTO) 70.1 % (40.0-70.0); PLATELET COUNT (AUTO) 243 K/uL (150-450); RED BLOOD CELL COUNT(AUTO) 4.63 MIL/uL (4.50-5.90); RED CELL DISTRIBUTION WIDTH 17.4 % (11.5-14.5)
[2019-08-11 03:11] LABS: CALCIUM, TOTAL 8.9 mg/dL (8.8-10.5); CREATININE 2.2 mg/dL (0.60-1.30); POTASSIUM 3.6 mmol/L (3.5-5.1)
[2019-08-11 03:14] LABS: INR 1.4 (0.9-1.1); PROTHROMBIN TIME 14.4 SEC (9.4-11.6)
[2019-08-11 03:37] LABS: ALBUMIN 2.2 g/dL (3.4-5.0); BILIRUBIN,TOTAL 0.8 mg/dL (0.1-1.0); TOTAL PROTEIN, SERUM 7.5 g/dL (6.4-8.2)
[2019-08-11] MEDS ORDERED: ACETAMINOPHEN 325 MG TABLET PO PRN (04:00)
[2019-08-11] MEDS ORDERED: FUROSEMIDE 40 MG/4 ML VIAL IVP ONE (04:00)
[2019-08-11] MEDS ORDERED: 0.9% SODIUM CHLORIDE 10 ML SYRINGE IVP PRN (04:00)
[2019-08-11] MEDS ORDERED: ONDANSETRON HCL 4 MG/2 ML VIAL IVP PRN (04:00)
[2019-08-11] MEDS ORDERED: METOPROLOL TARTRATE 5 MG/5 ML VIAL IVP ONE (04:15)
[2019-08-11] MEDS ORDERED: DILTIAZEM HCL 5 MG/ML 5 ML VIAL IVP ONE (05:45)
[2019-08-11 06:18] LABS: GLUCOSE,POINT OF CARE 160 MG/DL (70-110)
[2019-08-11] MEDS: FAMOTIDINE 20 MG TABLET PO SCH (13:05)
[2019-08-11] MEDS: ASPIRIN 81 MG CHEWABLE TABLET PO SCH (13:05)
[2019-08-11] MEDS: CARVEDILOL 12.5 MG TABLET PO SCH ×2 (13:10→20:41)
[2019-08-11] MEDS: SPIRONOLACTONE 25 MG TABLET PO SCH (13:13)
[2019-08-11] MEDS: LOSARTAN POTASSIUM 50 MG TABLET PO SCH (13:13)
[2019-08-11] MEDS: BUMETANIDE 1 MG TABLET PO SCH (13:13)
[2019-08-11 15:20] LABS: APPEARANCE,URINE CLEAR (CLEAR); GLUCOSE, URINE (UA) 100 mg/dL (NEGATIVE); KETONES,URINE NEGATIVE (NEGATIVE); LEUKOCYTE ESTERASE ,URINE NEGATIVE (NEGATIVE); NITRATE,URINE NEGATIVE (NEGATIVE); OCCULT BLOOD,URINE SMALL (NEGATIVE); PH,URINE 5.5 (5.0-8.0); PROTEIN,URINE SEE CONFIRM (NEGATIVE)
[2019-08-11 15:22] LABS: BILIRUBIN,URINE PRELIM. POSITIVE (NEGATIVE)
[2019-08-11 15:34] LABS: BACTERIA,URINE Few /HPF (None Seen); SULFOSALICYLIC ACID,URINE 3+ (Negative); WBC,URINE 0-2 /HPF (0-5)
[2019-08-11 15:35] LABS: SQUAMOUS EPITHELIAL CELL,UR Few /LPF (None Seen)
[2019-08-11 17:39] VITALS: BP 140/101
[2019-08-11] MEDS: GlipiZIDE 10 MG TABLET PO SCH (18:24)
[2019-08-11] MEDS: ACETAMINOPHEN 325 MG TABLET PO PRN (18:24)
[2019-08-11 19:16] VITALS: BP 117/91
[2019-08-11 20:21] LABS: GLUCOSE,POINT OF CARE 196 MG/DL (70-110)
[2019-08-11] MEDS: ATORVASTATIN CALCIUM 20 MG TABLET PO SCH (20:41)
[2019-08-11] MEDS ORDERED: DEXTROSE 50%-WATER 25 GM/50 ML SYRINGE IVP PRN (21:30)
[2019-08-11] MEDS: INSULIN LISPRO 100 UNITS/ML SQ PRN (21:39)
[2019-08-11 22:18] LABS: GLUCOMETER DEV NAME(LOC) 5S.2A; GLUCOSE,POINT OF CARE 227 MG/DL (70-110)
[2019-08-11] MEDS: HEPARIN SODIUM,PORCINE 5,000 UNITS/ML VIAL SQ SCH (23:19)
[2019-08-12 00:06] VITALS: BP 127/92
[2019-08-12 05:14] VITALS: BP 114/78
[2019-08-12] MEDS: GlipiZIDE 10 MG TABLET PO SCH ×2 (05:54→17:55)
[2019-08-12] MEDS: HEPARIN SODIUM,PORCINE 5,000 UNITS/ML VIAL SQ SCH ×2 (09:04→16:31)
[2019-08-12] MEDS: BUMETANIDE 1 MG TABLET PO SCH (09:05)
[2019-08-12] MEDS: ASPIRIN 81 MG CHEWABLE TABLET PO SCH (09:05)
[2019-08-12] MEDS: FAMOTIDINE 20 MG TABLET PO SCH (09:05)
[2019-08-12] MEDS: LOSARTAN POTASSIUM 50 MG TABLET PO SCH (09:05)
[2019-08-12] MEDS: SPIRONOLACTONE 25 MG TABLET PO SCH (09:06)
[2019-08-12] MEDS: CARVEDILOL 12.5 MG TABLET PO SCH ×2 (09:06→21:01)
[2019-08-12] MEDS ORDERED: *CLINICAL-LEVOFLOXACIN IVPB DOSING CLINICAL ONE (11:15)
[2019-08-12] MEDS: INSULIN LISPRO 100 UNITS/ML SQ PRN ×2 (11:51→17:22)
[2019-08-12 11:56] LABS: GLUCOMETER DEV NAME(LOC) 5S.2A; GLUCOSE,POINT OF CARE 226 MG/DL (70-110)
[2019-08-12 11:59] LABS: GLUCOMETER DEV NAME(LOC) 5N.2; GLUCOSE,POINT OF CARE 124 MG/DL (70-110)
[2019-08-12] MEDS: LEVOFLOXACIN 750 MG/D5% WATER 150 ML IV SCH (13:03)
[2019-08-12 16:00] VITALS: BP 110/74
[2019-08-12] MEDS: ACETAMINOPHEN 325 MG TABLET PO PRN (17:55)
[2019-08-12 18:20] LABS: GLUCOMETER DEV NAME(LOC) 5N.2; GLUCOSE,POINT OF CARE 146 MG/DL (70-110)
[2019-08-12 19:47] VITALS: BP 113/73
[2019-08-12] MEDS: ATORVASTATIN CALCIUM 20 MG TABLET PO SCH (21:01)
[2019-08-12 21:09] LABS: GLUCOMETER DEV NAME(LOC) 5S.2A; GLUCOSE,POINT OF CARE 113 MG/DL (70-110)
[2019-08-12 23:48] VITALS: BP 102/71
[2019-08-13] VITALS (7 sets, daily range): BP systolic 95–122; BP diastolic 58–87
[2019-08-13] MEDS: HEPARIN SODIUM,PORCINE 5,000 UNITS/ML VIAL SQ SCH ×4 (00:28→23:11)
[2019-08-13] MEDS: GlipiZIDE 10 MG TABLET PO SCH ×2 (06:02→17:10)
[2019-08-13] MEDS: INSULIN LISPRO 100 UNITS/ML SQ PRN ×3 (06:02→21:44)
[2019-08-13 06:59] LABS: GLUCOMETER DEV NAME(LOC) 5N.2; GLUCOSE,POINT OF CARE 159 MG/DL (70-110)
[2019-08-13] MEDS: SPIRONOLACTONE 25 MG TABLET PO SCH (08:19)
[2019-08-13] MEDS: CARVEDILOL 12.5 MG TABLET PO SCH ×2 (08:20→20:19)
[2019-08-13] MEDS: ASPIRIN 81 MG CHEWABLE TABLET PO SCH (08:20)
[2019-08-13] MEDS: BUMETANIDE 1 MG TABLET PO SCH (08:20)
[2019-08-13] MEDS: FAMOTIDINE 20 MG TABLET PO SCH (08:20)
[2019-08-13] MEDS: LOSARTAN POTASSIUM 50 MG TABLET PO SCH (09:00)
[2019-08-13] MEDS: LEVOFLOXACIN 750 MG/D5% WATER 150 ML IV SCH (11:14)
[2019-08-13] MEDS ORDERED: SODIUM CHLORIDE 0.9% 250 ML IV ONE (11:20)
[2019-08-13 18:15] LABS: GLUCOMETER DEV NAME(LOC) 5N.2; GLUCOSE,POINT OF CARE 193 MG/DL (70-110)
[2019-08-13 18:15] LABS: GLUCOMETER DEV NAME(LOC) 5N.2; GLUCOSE,POINT OF CARE 104 MG/DL (70-110)
[2019-08-13] MEDS: ATORVASTATIN CALCIUM 20 MG TABLET PO SCH (20:19)
[2019-08-13 23:43] LABS: GLUCOMETER DEV NAME(LOC) 5N.1; GLUCOSE,POINT OF CARE 152 MG/DL (70-110)
[2019-08-14 04:09] VITALS: BP 113/81
[2019-08-14] MEDS: GlipiZIDE 10 MG TABLET PO SCH (06:39)
[2019-08-14] MEDS: BUMETANIDE 1 MG TABLET PO SCH (07:55)
[2019-08-14] MEDS: SPIRONOLACTONE 25 MG TABLET PO SCH (07:55)
[2019-08-14] MEDS: FAMOTIDINE 20 MG TABLET PO SCH (07:55)
[2019-08-14] MEDS: CARVEDILOL 12.5 MG TABLET PO SCH (07:55)
[2019-08-14] MEDS: ASPIRIN 81 MG CHEWABLE TABLET PO SCH (07:55)
[2019-08-14] MEDS: LOSARTAN POTASSIUM 50 MG TABLET PO SCH (07:55)
[2019-08-14] MEDS: HEPARIN SODIUM,PORCINE 5,000 UNITS/ML VIAL SQ SCH (07:56)
[2019-08-14 08:05] VITALS: BP 128/81
[2019-08-14 08:31] LABS: GLUCOMETER DEV NAME(LOC) 5N.2; GLUCOSE,POINT OF CARE 127 MG/DL (70-110)
[2019-08-14] MEDS ORDERED: LEVO-72 PO (09:56)
[2019-08-14] MEDS ORDERED: BUME1TAB6 PO (09:56)
[2019-08-14 11:00] VITALS: BP 111/77
[2019-08-14] MEDS: LEVOFLOXACIN 750 MG/D5% WATER 150 ML IV SCH (11:16)
[2019-08-14] MEDS: INSULIN LISPRO 100 UNITS/ML SQ PRN (11:19)
[2019-08-14 21:24] LABS: GLUCOMETER DEV NAME(LOC) 5N.2; GLUCOSE,POINT OF CARE 216 MG/DL (70-110)
== END 2019-08-14 13:40 | disposition home or self-care (01) | DRG 383 ==
LOC: EMS 02:16 → 5S 05:00 → UNDOADMIN 05:00 → 5S 17:15
PROVIDERS: ADMIT Hospitalist; ATTEND Hospitalist
DX: L03.119 Cellulitis of unspecified part of limb (principal); E11.8 Type 2 diabetes mellitus with unspecified complications; I50.22 Chronic systolic (congestive) heart failure; I11.0 Hypertensive heart disease with heart failure; R60.0 Localized edema; E66.9 Obesity, unspecified; S80.821A Blister (nonthermal), right lower leg, initial encounter; Z79.84 Long term (current) use of oral hypoglycemic drugs; E78.5 Hyperlipidemia, unspecified; Z95.810 Presence of automatic (implantable) cardiac defibrillator; Z91.14 Patient's other noncompliance with medication regimen; Z83.3 Family history of diabetes mellitus; Z82.49 Family history of ischemic heart disease and other diseases of the circulatory system; Z68.42 Body mass index [BMI] 45.0-49.9, adult
CPT/HCPCS: 87081; 93005; 93970; J1644; J1940; J1956; J2270; J3490; J7050

== ENCOUNTER 2020-09-13 13:38 | Emergency (ER) | payer OTHER ==
[~2020-09-13] VITALS: Ht 185.4 cm; Wt 81.8 kg
[~2020-09-13 13:38] MED LIST changes: +ASPI-1450 PO; -ASPI-728 PO; -ATOR20TA65 PO; -BUME1TAB34 PO; -CARV12 PO; +CARV6 PO; -FAMO20 PO; +FURO40 PO; +LOSA50TA37 PO; -SPIR25 PO
[2020-09-13] MEDS ORDERED: NITROGLYCERIN 2% (1 GM=INCH) PACKET TP ONE (16:15)
[2020-09-13] MEDS ORDERED: CloNIDine HCL 0.2 MG TABLET PO ONE (16:15)
[2020-09-13 16:53] LABS: BASOPHILS % (AUTO) 0.7 % (0.0-2.0); EOSINOPHILS % (AUTO) 5.9 % (1.0-6.0); HEMOGLOBIN 9.6 g/dL (13.5-17.5); LYMPHOCYTES # (AUTO) 1.2 K/uL (1.0-4.8); LYMPHOCYTES % (AUTO) 22.3 % (22.0-44.0); MEAN CORPUSCULAR HEMOGLOBIN 30.5 pg (26.0-34.0); MEAN CORPUSCULAR HGB CONC 33.1 G/dL (31.0-37.0); MEAN CORPUSCULAR VOLUME 92 fL (80-100); MONOCYTES # (AUTO) 0.6 K/uL (0.1-1.0); MONOCYTES % (AUTO) 10.7 % (2.0-9.0); NEUTROPHILS # (AUTO) 3.2 K/uL (1.8-7.7); NEUTROPHILS % (AUTO) 60.4 % (40.0-70.0); PLATELET COUNT (AUTO) 163 K/uL (150-450); RED BLOOD CELL COUNT(AUTO) 3.15 MIL/uL (4.50-5.90); RED CELL DISTRIBUTION WIDTH 15.8 % (11.5-14.5)
[2020-09-13 17:04] LABS: CALCIUM, TOTAL 9.1 mg/dL (8.8-10.5); CREATININE 2.14 mg/dL (0.60-1.30); POTASSIUM 3.6 mmol/L (3.5-5.1)
[2020-09-13 17:07] LABS: INR 1.2 (0.9-1.1); PROTHROMBIN TIME 12.5 SEC (9.4-11.6)
[2020-09-13 17:29] LABS: ALBUMIN 2.9 g/dL (3.4-5.0); BILIRUBIN,TOTAL 0.3 mg/dL (0.1-1.0); TOTAL PROTEIN, SERUM 7.7 g/dL (6.4-8.2)
[2020-09-13 18:26] VITALS: BP 169/99
== END 2020-09-13 19:05 | disposition home or self-care (01) ==
LOC: EMS 13:41
DX: I50.9 Heart failure, unspecified (principal); R60.0 Localized edema; I11.0 Hypertensive heart disease with heart failure; E11.9 Type 2 diabetes mellitus without complications; G43.909 Migraine, unspecified, not intractable, without status migrainosus; Z79.82 Long term (current) use of aspirin; Z79.899 Other long term (current) drug therapy
CPT/HCPCS: 71045; 80053; 82550; 82962; 83880; 84484; 85025; 85610; 85730; 93005; 93971; 99285; 36415-L1; 36415-TC

== ENCOUNTER 2020-09-17 21:41 | Emergency (ER) | payer OTHER ==
[~2020-09-17] VITALS: Ht 185.4 cm; Wt 105.0 kg
[2020-09-17] MEDS ORDERED: BACITRACIN 0.9 GM PACKET OINTMENT TP ONE ×2 (22:30→23:15)
[2020-09-17] MEDS ORDERED: ACETAMINOPHEN 500 MG TABLET PO ONE (22:30)
[2020-09-17] MEDS ORDERED: MORPHINE SULFATE 2 MG/ML SYRINGE IVP ONE (23:45)
[2020-09-18 03:30] VITALS: BP 174/98
== END 2020-09-18 04:11 | disposition home or self-care (01) ==
LOC: EMS 21:43
DX: S42.032A Displaced fracture of lateral end of left clavicle, initial encounter for closed fracture (principal); S00.81XA Abrasion of other part of head, initial encounter; I11.0 Hypertensive heart disease with heart failure; I50.9 Heart failure, unspecified; E11.9 Type 2 diabetes mellitus without complications; G43.909 Migraine, unspecified, not intractable, without status migrainosus; Z86.73 Personal history of transient ischemic attack (TIA), and cerebral infarction without residual deficits; Z79.899 Other long term (current) drug therapy; W19.XXXA Unspecified fall, initial encounter; Y93.01 Activity, walking, marching and hiking; Y92.89 Other specified places as the place of occurrence of the external cause; Y99.8 Other external cause status
CPT/HCPCS: 70450; 71045; 72125; 73030; 73562; 82962; 96374; 99285; J2270

== ENCOUNTER 2020-10-01 13:15 | Emergency (ER) | payer OTHER ==
[~2020-10-01] VITALS: Ht 185.4 cm; Wt 104.1 kg
[2020-10-01 17:18] VITALS: BP 154/79
== END 2020-10-01 17:19 | disposition home or self-care (01) ==
LOC: EMS 13:17
DX: R60.0 Localized edema (principal); I11.0 Hypertensive heart disease with heart failure; I50.9 Heart failure, unspecified; E11.9 Type 2 diabetes mellitus without complications; G43.909 Migraine, unspecified, not intractable, without status migrainosus; Z86.73 Personal history of transient ischemic attack (TIA), and cerebral infarction without residual deficits; Z79.82 Long term (current) use of aspirin; Z79.899 Other long term (current) drug therapy
CPT/HCPCS: 93971; 99284; 73090-TC; Z7502

== ENCOUNTER → 2020-10-17 | Outpatient (CLI) | payer OTHER | END | disposition home or self-care (01) | LOC: RADPV 09:45 | PROVIDERS: ATTEND Internal Medicine Cardiovascular Disease | DX: I42.0 Dilated cardiomyopathy (principal); I50.9 Heart failure, unspecified | CPT/HCPCS: 93306 ==